=== PATIENT | female | born 1985 | race African-American/Black ===

== ENCOUNTER 2017-03-31 08:39 | Emergency (ER) | payer OTHER ==
[~2017-03-31] VITALS: Ht 170.2 cm; Wt 65.4 kg
[~2017-03-31 08:39] MED LIST: BACTRIM,SEPT1 TABLET PO; ZOFRAN4 MG PO
[2017-03-31 08:41] VITALS: BP 106/72
== END 2017-03-31 10:31 | disposition left against medical advice (07) ==
LOC: EME 08:39
DX: S93.402A Sprain of unspecified ligament of left ankle, initial encounter (principal)
CPT/HCPCS: 73610; 99281; 99283

== ENCOUNTER 2017-08-10 19:14 | Emergency (ER) | payer OTHER ==
[~2017-08-10] VITALS: Ht 167.6 cm; Wt 66.8 kg
[2017-08-10 19:20] VITALS: BP 98/83
[2017-08-10] MEDS ORDERED: GENTAMICIN SULFA5 ML BOTH EYES (19:57)
== END 2017-08-10 20:12 | disposition home or self-care (01) ==
LOC: EME 19:14
DX: H10.9 Unspecified conjunctivitis (principal); F17.200 Nicotine dependence, unspecified, uncomplicated

== ENCOUNTER 2017-08-21 02:11 | Emergency (ER) | payer OTHER ==
[~2017-08-21] VITALS: Ht 170.2 cm; Wt 67.7 kg
[~2017-08-21 02:11] MED LIST changes: +GENTAMICIN SULFA5 ML BOTH EYES
[2017-08-21 02:16] VITALS: BP 118/67
== END 2017-08-21 03:30 | disposition left against medical advice (07) ==
LOC: EME 02:11
DX: H57.9 Unspecified disorder of eye and adnexa (principal); Z53.21 Procedure and treatment not carried out due to patient leaving prior to being seen by health care provider

== ENCOUNTER 2018-01-30 18:32 | Emergency (ER) | payer SELFPAY ==
[~2018-01-30] VITALS: Ht 170.2 cm; Wt 67.4 kg
[2018-01-30] MEDS ORDERED: FLONASE16 G1 BOTH NARES (20:40)
[2018-01-30 20:48] VITALS: BP 135/87
== END 2018-01-30 20:41 | disposition home or self-care (01) ==
LOC: EME 18:32
DX: H65.91 Unspecified nonsuppurative otitis media, right ear (principal); Z88.6 Allergy status to analgesic agent
CPT/HCPCS: 99281; 99282

== ENCOUNTER 2018-02-13 21:20 | Emergency (ER) | payer SELFPAY ==
[~2018-02-13] VITALS: Ht 170.2 cm; Wt 64.9 kg
[~2018-02-13 21:20] MED LIST changes: +FLONASE16 G1 BOTH NARES
[2018-02-13 21:21] VITALS: BP 116/78
== END 2018-02-13 23:49 | disposition left against medical advice (07) ==
LOC: EME 21:20
DX: S69.90XA Unspecified injury of unspecified wrist, hand and finger(s), initial encounter (principal); Z53.21 Procedure and treatment not carried out due to patient leaving prior to being seen by health care provider